=== PATIENT | female | born 1945 | race Caucasian/White ===

== ENCOUNTER 2017-07-18 12:23 | Inpatient (IN) | payer OTHER ==
[~2017-07-18] VITALS: Ht 165.1 cm; Wt 91.2 kg
--- NOTE | ~2017-07-18 | CO ---
Unit #: [id number] #: [id number] Patient: RIOS AGUIRRE [id number] [address] [address] [id number] I MR#: [id number] NAME: RIOS AGUIRRE. ROOM: 308 Age: 72 Sex: F Admission Date: 07/18/2017 : 1945 Attending Physician: Hansel Ardon Primary Care Physician: Travon Yepez M.D. Consultation Date: 07/19/2017 CONSULTATION REPORT REASON FOR CONSULTATION Acidosis and renal insufficiency. Thank you very much for asking me to see this patient in consultation. HISTORY OF PRESENT ILLNESS Ms. Pietro Aguirre is a 72-year-old female, who I have seen in the past secondary to some renal insufficiency, although I do not have the office records at this time and I cannot remember when the last date was, but I known in 2014 renal ultrasound was done, which showed some small kidneys bilaterally and her creatinine in 2013 ranged between 1.4 to 1.5, in 2015 it was actually improved down to 1.1. She presented here yesterday after having seizures at home. She has had 2 to 3 days prior to presentation of abdominal pain, nausea, vomiting, diarrhea, developed seizures, and presented here. She was noted to have a bicarb of 13 with a creatinine 1.3. Because of this, I was asked to see the patient. The patient currently is arousable, little confused, very slow to answer questions. No family is at bedside. She currently states her abdominal pain, nausea, vomiting, and diarrhea have improved. She is not having any chest pain or shortness of breath. MEDICATIONS At home includes zonisamide, citalopram, levothyroxine, oxybutynin, amlodipine, gabapentin, aspirin, Zantac. Here, she was started on Levaquin. ALLERGIES Include penicillin, codeine, and Demerol. SOCIAL HISTORY She lives with her daughter and granddaughter. No smoking. No alcohol. PAST MEDICAL HISTORY History of seizure disorder, history of hypertension, history of CVA, history of psychiatric disorder, history of chronic kidney disease stage 3, history of gastroesophageal reflux disease, status post bilateral hips, status post right knee, status post appendectomy, status post hysterectomy, status post cholecystectomy. REVIEW OF SYSTEMS As mentioned in the HPI, otherwise negative. PHYSICAL EXAMINATION GENERAL: Again, she is alert, little confused. Unit #: [id number] #: [id number] Patient: TALYA VITAL SIGNS: T-max 99.8, pulse 63 to 107, blood pressure 123 to 170 over 59 to 100. HEENT: She is normocephalic and atraumatic. Pupils are equal, round, and reactive to light. Extraocular muscles are intact. Hearing appears to be normal. Mouth is dry. No erythema. No exudate. NECK: Supple. No adenopathy. CARDIAC: She appears to have a regular rhythm without a rub. No S3 or S4. LUNGS: Appear to be clear bilaterally. No wheezes, rhonchi, or rales. ABDOMEN: Overweight, bowel sounds positive, nontender, soft. EXTREMITIES: She has no significant lower extremity swelling. Her pulses are intact in lower extremities. JOINTS: No joint pain or joint swelling. SKIN: No acute rashes. NEUROLOGIC: Again, some confusion and very slow to answer questions. : Serna catheter is currently in place. DIAGNOSTIC STUDIES LABORATORY RESULTS: Upon admission showed again creatinine 1.3, bicarb is 13 with an anion gap of 15. Today, shows sodium is 142; potassium 3.8; chloride is 113; bicarb is 20, she has been on a bicarb drip which has now been discontinued; BUN of 23; creatinine 1.3; glucose is 104 here, on admission it was 198; calcium is 8.9; albumin is 3.4. Lactic acid is 1.4. Previous creatinine is as mentioned above. Her urine showed a specific gravity of 1.02, 2+ protein, positive ketones, 100 to 200 wbc's, 2 to 5 rbc's, 4+ bacteria with gram negative rods. IMAGING STUDIES: Chest x-ray and CT of the head were both negative. ASSESSMENT/PLAN 1. Acidosis. Although, I do not have an ABG, assume it is a metabolic acidosis. No history of any type of ingestions, although disagree with check an aspirin on the tox screen. Certainly, her anion gap was 15, which is mildly elevated and certainly it could be multifactorial from diarrhea versus renal insufficiency questionable renal tubular acidosis. She also had urine ketones, although noticed she had some sort of starvation ketosis, although I do not have serum ketones at this point either versus other. Her bicarb has improved. I agree with stopping bicarb drip. We will put her on some oral bicarb. We will check some urine electrolytes to rule out renal tubular acidosis, but hopefully will continue to improve. Lactic acid was again 1.4, so I do not think that is contributing to her bicarb being low. 2. Renal insufficiency. Appears to have chronic kidney disease. Again, I do not have my office records of workup, but I am going to go ahead and do an SPEP. No reason to do an imaging studies at this time. We will follow. 3. Gram-negative urinary tract infection, on Levaquin. Await sensitivities. 4. Seizure disorder. 5. Psychiatric disorder. 6. Hypertension. Certainly, we will follow her blood pressure trends and treat whatever agents as clinically indicated. Certainly, she continues to have proteinuria even mildly KENYETTA inhibitor and angiotensin receptor nikki would be probably the drug of choice. Dictated by.Nishant Pizarro M.D. Unit #: [id number] #: [id number] Patient: RIOS AGUIRRE BRAULIO/modl TD: 07/19/2017 16:33 JOB #: [id number] CONSULTATION REPORT Page 1 of 1 X Ivania Pizarro MD X CONSULTATION REPORT
--- NOTE | ~2017-07-18 | CT71 ---
[facility] A Service of [facility] RADIOLOGY TEXT RESULTS PATIENT: TALYAApril LOCATION: [facility] 308-01 : 44 UNIT #: [id number] AGE: [address]: Soraida Diana MD SEX: F ORDER DR: [id number] [facility] [address] [facility]. [place], [place] [address] [id number] I MR#: [id number] Acc #: [id number] NAME: RIOS BABIN. : 1945 SEX: F STUDY DATE/TIME: 07/18/2017 14:19 UNIT: CEDOF ROOM: 79747 STUDY DESCRIPTION: CT Head Wo Contrast Attending Physician: Soraida Diana M.D. Ordering Physician: Tee Figueroa M.D. Primary Care Physician: Travon Yepez M.D. MEDICAL IMAGING REPORT This report is preliminary unless electronic signature is present EXAM Head CT without contrast, 07/18/2017. HISTORY Acute mental status change today, confusion status post seizure today with agitation. TECHNIQUE Multiple axial images were obtained from the skull base to vertex without intravenous contrast administration. This CT exam was performed with one or more of the following radiation dose reduction techniques: automatic exposure control, adjustment of mA and/or kV according to patient size, and iterative reconstruction. FINDINGS The exam is somewhat limited by patient motion with resulting artifact. The ventricles are normal in size, shape, and position. There is no midline shift. There is no mass or mass effect, hemorrhage or acute infarct. The visualized paranasal sinuses are clear. IMPRESSION Exam limited by patient motion with resulting artifact. No acute intracranial abnormality. Dictated by... Daniel Queen M.D. THIS IS AN ELECTRONICALLY VERIFIED REPORT Daniel Queen M.D. at 07/19/2017 6:39 AM ALLYSSA/tmw [facility] A Service of [facility] RADIOLOGY TEXT RESULTS PATIENT: TALYARIOS Cathryn LOCATION: [facility] 308-01 : 44 UNIT #: [id number] AGE: [address]: Soraida Diana MD SEX: F ORDER DR: TD: 07/18/2017 17:26 JOB #: [id number] MEDICAL IMAGING REPORT Page 1 of 1 COPY
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
--- NOTE | ~2017-07-18 | CO ---
Unit #: [id number] #: [id number] Patient: RIOS BABIN [id number] [facility] [address] [facility]. [place], [place] [address] [id number] MR#: [id number] NAME: RIOS BABIN. ROOM: 308 Age: 72 Sex: F Admission Date: 07/18/2017 : 1945 Attending Physician: Hansel Ardon M.D. Primary Care Physician: Travon Yepez M.D. Consultation Date: 07/19/2017 CONSULTATION REPORT REASON FOR CONSULTATION Seizures. PATIENT IDENTIFICATION This is a 72-year-old right-handed white female, who was evaluated in room 308 at [facility]. SOURCE OF INFORMATION The patient and evaluation done by admitting team and previous records. I have seen this patient in the past. PROBLEM LIST 1. 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 2. Chronic kidney disease stage III, followed by Dr. Pizarro. 3. GERD. 4. History of stroke. 5. History of hypothyroidism. 6. Bilateral hip surgery. 7. Right knee surgery. 8. Cholecystectomy. 9. Appendectomy. 10. Hysterectomy. 11. EGD. 12. Possible UTI, which could be secondary cause for increased seizure threshold. 13. Metabolic acidosis with anion gap of 15. 14. Nausea and vomiting. 15. Hypothyroidism. HISTORY OF PRESENT ILLNESS This is a very pleasant 72-year-old female, who is actually known to me and is being followed by Dr. Salguero. She was a patient of Dr. Sesar Valdez in the past. She was diagnosed with epilepsy since the s. She is to have a strange taste in the mouth and then sometimes staring episodes and other times the seizures. She has not had a generalized convulsive type episode for quite some time. She presented with multiple seizure and one prolonged generalized convulsive type event. She has failed monotherapy of Dilantin and phenobarbital and also tried combination of Keppra, Trileptal, and Tegretol and lately has been on zonisamide and also on Neurontin and they have been working on her because she continues to have staring episodes and strange taste in the mouth. She is doing much better, but still confabulating and perseverating, not Unit #: [id number] #: [id number] Patient: RIOS BABIN back to her normal self. Her daughter was worried about it, but she is much more awake and has not had a seizure in almost 24 hours now. She does have UTI probably that is causing the problem. She denies any noncompliance. PAST MEDICAL HISTORY As discussed above. PAST SURGICAL HISTORY As discussed above. ALLERGIES Penicillin, codeine, meperidine. HOME MEDICATIONS Zonisamide 100 mg one capsule in the morning and two at night, citalopram, levothyroxine 0.25 mg daily, oxybutynin 15 mg b.i.d., gabapentin 800 mg t.i.d., amlodipine 10 mg daily, aspirin 81 mg daily, ranitidine 150 mg daily. FAMILY HISTORY No seizures known to me. Dad had COPD. SOCIAL HISTORY The patient is living with her daughter and granddaughter. She is . She has no tobacco, alcohol, or drug use. REVIEW OF SYSTEMS Difficult to obtain because of her confusional state. HEENT: She denies any headaches, double vision, earache, runny nose, or sore throat. CHEST: She denies any chest pain. She denies any shortness of air. GASTROINTESTINAL: She denies any nausea, vomiting, diarrhea, or constipation. GENITOURINARY: No genitourinary symptoms. EXTREMITIES: No extremity problems. BACK: No back problem. PSYCHIATRIC: She denies. NEUROLOGIC: Seizures. No other hematologic, dermatologic, or endocrine problem. PHYSICAL EXAMINATION VITAL SIGNS: Temperature 99.6, pulse 68, respirations 18, blood pressure 133/90, O2 saturations were 95% to 100%. Weight 187 pounds. NEUROLOGIC: The patient is awake. She is alert. She is oriented to herself. She is struggling with place and time. She is even struggling with telling me her daughter's name. She can name. She can follow commands. No real right/left confusion. Cranial nerve examination demonstrate respond to threats in all sidhu. Eye movements are conjugate. I did not see any ptosis. I did not see any nystagmus. Extraocular movements are intact. Sensation on the face and scalp are normal. Strength of muscles of facial expression seemed to be normal. Hearing seemed to be intact. Tongue was midline. I could not visualize oropharynx or uvula. Head turning was spontaneous. Motor examination; she has normal bulk and tone. Strength was 5-/5. Unit #: [id number] #: [id number] Patient: RIOS BABIN Sensory examination intact for soft touch and pain sensation. No extinction was seen. Romberg was not evaluated. Gait examination was deferred. Reflexes 1/4. Toes are equivocal. Coordination was normal. DIAGNOSTIC STUDIES LABORATORY RESULTS: The biggest concern on lab are H and H of 10.8 and 32.1, white count was 9.8, platelet count was 228. Urinalysis showed benzodiazepines positive and opiates positive. She got some medication. Leukocyte esterase 1+, 100 to 200 wbc's, 4+ bacteria. IMAGING STUDIES: She got head CT which was reported as exam limited by the patient's motion artifact, otherwise unremarkable. IMPRESSION This is a very interesting 72-year-old female with likely breakthrough seizure. She is taking several medication. She has urinary tract infection and probably that was one of the causes. I agree with the team. We need to change our treatment plan. I talked to her daughter and she does not recognize or remember that she uses Vimpat, so I will go with Keppra and Vimpat. I am going to decrease the Neurontin to 400 mg t.i.d. because she has renal patient, also she has problems with metabolic acidosis, so I will start tapering zonisamide. She did not get yesterday's dose I believe, so I am going to give her 100 mg for 3 days nightly and see how things go. She should follow up with Dr. Salguero. Call me for any other questions, issues, or concerns. Seizure precautions, state laws start all over again. Call me for any other issues. Dictated by... Barbara Tyson/anastasia TD: 07/19/2017 17:31 JOB #: [id number] CONSULTATION REPORT Page 1 of 1 X Viviane Madden MD CONSULTATION REPORT
--- NOTE | ~2017-07-18 | CR229 ---
[facility] A Service of [facility] RADIOLOGY TEXT RESULTS PATIENT: RIOS BABIN LOCATION: [facility] : 44 UNIT #: [id number] AGE: [address]: Soraida Diana MD SEX: F ORDER DR: [id number] [facility]. [place], [place] [address] [id number] MR#: [id number] Acc #: [id number] NAME: RIOS BABIN. : 1945 SEX: F STUDY DATE/TIME: 07/18/2017 15:24 UNIT: [address] ROOM: [facility] STUDY DESCRIPTION: CR Shoulder Min 2 View Lt Attending Physician: Soraida Diana M.D. Ordering Physician: Uzair Estrada M.D. Primary Care Physician: Travon Yepez M.D. MEDICAL IMAGING REPORT This report is preliminary unless electronic signature is present EXAM Left shoulder 3 views 07/18/2017 INDICATIONS Altered mental status, seizure, clinical concern for dislocation. The patient is incoherent. Altered mental status. TECHNIQUE 3 views COMPARISON 05/01/2014 FINDINGS No acute fracture, shoulder separation or dislocation. There is degenerative change of the glenohumeral joint, humeral head and AC joint. Marked spurring of the humeral head. There is a high riding humeral head suggestive of chronic rotator cuff tear. IMPRESSION Osteoporosis with findings suggestive of a chronic rotator cuff tear and associated degenerative change but no acute fracture or dislocation. Dictated by... Sesar Garcia M.D. THIS IS AN ELECTRONICALLY VERIFIED REPORT Sesar Garcia M.D. at 07/18/2017 11:18 PM JOYCEY/priscilla TD: 07/18/2017 18:35 JOB #: [id number] [facility] A Service of [facility] RADIOLOGY TEXT RESULTS PATIENT: RIOS BABIN LOCATION: [facility] : 44 UNIT #: [id number] AGE: [address]: Soraida Diana MD SEX: F ORDER DR: MEDICAL IMAGING REPORT Page 1 of 1 COPY
--- NOTE | ~2017-07-18 | DS ---
Unit #: [id number] #: [id number] Patient: RIOS BABIN [id number] [address] [address] [id number] MR#: [id number] NAME: RIOS BABIN. ROOM: 308 Age: 72 Sex: F Admission Date: 07/18/2017 : 1945 Discharge Date: 07/22/2017 Attending Physician: Hansel Ardon M.D. Primary Care Physician: Travon Yepez M.D. DISCHARGE SUMMARY DISCHARGE DIAGNOSES Intractable seizure, pyelocystitis, metabolic acidosis, chronic kidney disease, hypertension, hypothyroidism, acute delirium, gastroenteritis, ketosis from nausea and vomiting. HOSPITAL COURSE The patient is a 72-year-old woman with a history significant for recurrent seizures, hypertension, chronic kidney disease, hypothyroidism, depression and anxiety, urinary incontinence, who presented with symptoms of abdominal pain, nausea, vomiting, and diarrhea. The patient's seizure medications were zonisamide and gabapentin. She was found to be having altered mental level of consciousness, unable to communicate, clinching mouth, who is acutely treated for the intractable seizure with IV Keppra and Vimpat. CAT scan of the head showed no acute findings. During her admission, her urine culture came back positive for Escherichia coli. The patient was treated with valsartan. She will be continued on p.o. Keflex as an outpatient. The patient has not had recurrent seizure during her admission on the new antiseizure medications. Her altered level of consciousness and acute delirium had resolved. On labs, the patient was noted to have metabolic acidosis which can be an adverse effect of her medication zonisamide. Therefore, this medication is discontinued. Her Neurontin dose is reduced from 800 mg to 400 mg. She had no further nausea and vomiting. The patient also had ketosis likely secondary to her nausea and vomiting, which the ketosis also resolved with IV fluids. The patient is awake, alert, and oriented, not having any further seizures. The patient will be discharged home today with home health services. DISCHARGE MEDICATIONS Amlodipine 10 mg p.o. at bedtime, oxybutynin 15 mg p.o. once daily, ranitidine 150 mg p.o. once daily, aspirin 81 mg p.o. once daily, Naprosyn 550 mg p.o. once daily as needed for headache, calcium carbonate with vitamin D tablet one p.o. once daily, sodium carbonate 1300 mg p.o. twice daily, acetaminophen 650 mg p.o. q.4 p.r.n., gabapentin 400 mg p.o. t.i.d., Vimpat 100 mg p.o. twice daily, Keppra 500 mg p.o. three times a day, Celexa 20 mg p.o. once daily, vitamin D 1000 units p.o. once daily, vitamin B12 1000 mcg p.o. once daily, Keflex 500 mg p.o. q.12 hours for 5 days. 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 The patient is to follow up with primary care physician. The patient will receive home health services with Physical Therapy. Unit #: [id number] #: [id number] Patient: RIOS BABIN Dictated by... Barbara Masterson TD: 07/26/2017 11:24 JOB #: [id number] DISCHARGE SUMMARY Page 1 of 1 X X DISCHARGE SUMMARY
--- NOTE | ~2017-07-18 | CR72 ---
[facility] A Service of [facility] & [facility] RADIOLOGY TEXT RESULTS PATIENT: RIOS BABIN LOCATION: [facility] 308-01 : 44 UNIT #: [id number] AGE: [address]: Soraida Diana MD SEX: F ORDER DR: [id number] [facility] [address]. [place], [place] [address] [id number] MR#: [id number] Acc #: [id number] NAME: RIOS BABIN. : 1945 SEX: F STUDY DATE/TIME: 07/18/2017 13:49 UNIT: CEDOF ROOM: 75943 STUDY DESCRIPTION: CR Chest Single View Portable Attending Physician: Soraida Diana M.D. Ordering Physician: Tee Figueroa M.D. Primary Care Physician: Travon Yepez M.D. MEDICAL IMAGING REPORT This report is preliminary unless electronic signature is present EXAM Portable chest, 07/18/2017. HISTORY Shortness of breath, status post seizure today. Benign essential hypertension. FINDINGS A single AP portable view of the chest shows both lungs to be clear. The heart is normal in size. The mediastinal contour is normal. No significant bone abnormalities are seen. IMPRESSION Normal portable chest. Dictated by... Daniel Queen M.D. THIS IS AN ELECTRONICALLY VERIFIED REPORT Daniel Queen M.D. at 07/19/2017 6:38 AM ALLYSSA/aldair TD: 07/18/2017 17:09 JOB #: [id number] MEDICAL IMAGING REPORT Page 1 of 1 COPY
[~2017-07-18 12:23] MED LIST: ?ANTIBIOTIC; ACETAMINOPHEN PO; ASPIRIN EC81 M1 PO; ASPIRIN PO; ATIVAN PO; CELEXA10 MG PO; CELEXA20 MG PO; CITALOPRAM HBR10 MG PO; CRESTOR PO; CRESTOR10 MG PO; DARVOCET-N 1001 TAB PO; DITROPAN PO; DITROPAN XL PO; ECOTRIN81 M1 PO; HYDROCODON-ACE1 EAC3; HYDROCODON-ACE1 EAC7 PO; KEPPRA750 MG PO; LAMICTAL5 MG PO; LAMOTRIGINE200 MG PO; LAMOTRIGINE5 MG PO; LISINOPRIL PO; LOPID600 MG PO; MULTIVITAMIN W-1 TAB PO; NEPHROCAPS CAPSU1 MG PO; NEURONTIN PO; NEURONTIN800 MG PO; NORVASC PO; NORVASC10 MG PO; OMEPRAZOLE20 M2; OXYBUTYNIN CHLO15 MG PO; PHENERGAN25 MG PO; PRILOSEC20 M1 PO; PRINIVIL10 MG PO; SODIUM BICARBO650 MG PO; VIT B-12 PO; ZANTAC PO; ZANTAC150 MG PO; ZOCOR PO; ZONEGRAN100 M1 PO
[2017-07-18 13:37] LABS: BASOPHIL% 0.3 % (0-2.5); HEMATOCRIT 40.8 % (35.0-45.0); HEMOGLOBIN 13.3 gm/dL (12.0-16.0); LYMPHOCYTE# 0.7 X10e3 (1.0-3.5); LYMPHOCYTE% 5.8 % (17.0-45.0); MEAN CELL VOLUME 92.7 FL (83-96); MEAN CORPUSCULAR HEMOGLOBIN 30.3 PG (28-34); MEAN CORPUSCULAR HGB CONC 32.7 g/dL (30-36); MEAN PLATELET VOLUME 8.8 FL (6.5-11.5); MONOCYTE# 0.4 X10e3 (0-1.0); NEUTROPHIL# 10.9 X10e3 (1.5-7.1); NEUTROPHIL% 90.9 % (40-75); PLATELET COUNT 279 X10e3 (140-420); RED CELL DISTRIBUTION WIDTH 14.1 % (11.0-15.5)
[2017-07-18 13:46] LABS: DIFF IND NO
[2017-07-18 14:03] LABS: ALBUMIN SERUM 4.1 g/dL (3.5-5.0); BILIRUBIN, DIRECT 0.2 mg/dL (0.0-0.2); BILIRUBIN,INDIRECT 0.5 mg/dL (0.0-0.9); BILIRUBIN,TOTAL 0.7 mg/dL (0.2-2.0); BUN/CREATININE RATIO 17.69; CREATININE SERUM 1.3 mg/dL (0.6-1.4); GLOM FILT RATE Estimated 40.7 mL/min (>60); POTASSIUM 3.9 mmol/L (3.5-5.1); PROTEIN TOTAL SERUM 7.2 g/dL (6.0-8.3)
[2017-07-18] MEDS ORDERED: NAPROXEN SODIU550 MG PO (16:21)
[2017-07-18] MEDS ORDERED: RANITIDINE HCL150 M1 PO (16:21)
[2017-07-18] MEDS ORDERED: VITAMIN D31000 UNIT PO (16:23)
[2017-07-18] MEDS ORDERED: CALCIUM 600 +1 EAC1 PO (16:23)
[2017-07-18 16:33] LABS: URINE APPEARANCE CLOUDY; URINE BILIRUBIN NEG (NEG); URINE BLOOD NEG (NEG); URINE COLOR YELLOW; URINE GLUCOSE NEG (NEG); URINE KETONE 1+ (NEG); URINE LEUKOCYTE ESTERASE 1+ (NEG); URINE NITRATE NEG (NEG); URINE PH 5.5 (5-8); URINE PROTEIN 2+ (NEG)
[2017-07-18 16:36] LABS: URINE BACTERIA AUWI 4+ (NEGATIVE); URINE SQUAMOUS EPITHELIAL CELL NONE SEEN /[HPF]; UWBCS1 AUWI 100-200 (0-5)
[2017-07-18 21:42] LABS: BUN/CREATININE RATIO 20.83; CALCIUM SERUM 9.2 mg/dL (8.4-10.2); CREATININE SERUM 1.2 mg/dL (0.6-1.4); GLOM FILT RATE Estimated 44.8 mL/min (>60); POTASSIUM 3.8 mmol/L (3.5-5.1)
[2017-07-19 05:13] LABS: HEMATOCRIT 32.1 % (35.0-45.0); MEAN CELL VOLUME 92.9 FL (83-96); MEAN CORPUSCULAR HEMOGLOBIN 31.1 PG (28-34); MEAN CORPUSCULAR HGB CONC 33.5 g/dL (30-36); MEAN PLATELET VOLUME 7.9 FL (6.5-11.5); RED BLOOD COUNT 3.46 X10e (3.90-5.30); RED CELL DISTRIBUTION WIDTH 14.1 % (11.0-15.5); WHITE BLOOD COUNT 9.8 X10e3 (4.0-10.5)
[2017-07-19 05:29] LABS: HEMOGLOBIN 10.8 gm/dL (12.0-16.0)
[2017-07-19 06:41] LABS: ALBUMIN SERUM 3.4 g/dL (3.5-5.0); BILIRUBIN,TOTAL 0.2 mg/dL (0.2-2.0); BUN/CREATININE RATIO 19.23; CALCIUM SERUM 8.9 mg/dL (8.4-10.2); CREATININE SERUM 1.3 mg/dL (0.6-1.4); GLOM FILT RATE Estimated 40.7 mL/min (>60); MAGNESIUM 1.8 mg/dL (1.6-3.0); POTASSIUM 3.8 mmol/L (3.5-5.1); PROTEIN TOTAL SERUM 5.9 g/dL (6.0-8.3)
[2017-07-19 14:30] LABS: THYROID STIMULATING HORMONE 1.87 uIU/ml (0.34-5.60)
[2017-07-19 14:34] LABS: AMPHETAMINE NEG (NEG); BARBITURATES NEG (NEG); BENZODIAZEPINES POS (NEG); COCAINE NEG (NEG); MARIJUANA NEG (NEG); OPIATES POS (NEG); TRICYCLIC ANTIDEPRESSANTS NEG (NEG); U METHADONE NEG (NEG)
[2017-07-19 14:36] LABS: FREE THYROXIN (T4) 1.19 ng/dL (0.58-1.64)
[2017-07-19 15:47] LABS: POTASSIUM,URINE RANDOM 30 mmol/L; SODIUM URINE RANDOM 159 mmol/L
[2017-07-20 06:29] LABS: HEMATOCRIT 33.4 % (35.0-45.0); HEMOGLOBIN 11.1 gm/dL (12.0-16.0); MEAN CELL VOLUME 94.7 FL (83-96); MEAN CORPUSCULAR HEMOGLOBIN 31.4 PG (28-34); MEAN CORPUSCULAR HGB CONC 33.1 g/dL (30-36); MEAN PLATELET VOLUME 8.2 FL (6.5-11.5); RED BLOOD COUNT 3.52 X10e (3.90-5.30)
[2017-07-20 07:12] LABS: ALBUMIN SERUM 3.4 g/dL (3.5-5.0); BILIRUBIN,TOTAL 0.6 mg/dL (0.2-2.0); BUN/CREATININE RATIO 21.81; CALCIUM SERUM 8.8 mg/dL (8.4-10.2); CREATININE SERUM 1.1 mg/dL (0.6-1.4); GLOM FILT RATE Estimated 49.8 mL/min (>60); MAGNESIUM 1.8 mg/dL (1.6-3.0); PHOSPHOROUS 2.9 mg/dL (2.5-4.6); POTASSIUM 3.9 mmol/L (3.5-5.1); PROTEIN TOTAL SERUM 5.7 g/dL (6.0-8.3)
[2017-07-21 05:55] LABS: CALCIUM SERUM 8.4 mg/dL (8.4-10.2); CREATININE SERUM 1.4 mg/dL (0.6-1.4); GLOM FILT RATE Estimated 37.2 mL/min (>60); POTASSIUM 3.4 mmol/L (3.5-5.1)
[2017-07-21 22:13] LABS: SPE A1GLOB (PNL) 0.3 g/dL (0.2-0.3); SPE A2GLOB (PNL) 0.6 g/dL (0.5-0.9); SPE ALB (PNL) 3.7 g/dL (3.8-4.8); SPE BETA 1 GLOBULIN 0.4 g/dL (0.4-0.6); SPE BETA 2 GLOBULIN 0.2 g/dL (0.2-0.5); SPE GAMMA (PNL) 0.6 g/dL (0.8-1.7); SPETP (PNL) 5.9 g/dL (6.1-8.1)
[2017-07-22 06:04] LABS: BUN/CREATININE RATIO 22.5; CALCIUM SERUM 9.2 mg/dL (8.4-10.2); CREATININE SERUM 0.8 mg/dL (0.6-1.4); GLOM FILT RATE Estimated 73.2 mL/min (>60); POTASSIUM 3.9 mmol/L (3.5-5.1)
[2017-07-22] MEDS ORDERED: ANTACID650 MG PO (14:15)
[2017-07-22] MEDS ORDERED: FEVERALL650 MG PR (14:16)
[2017-07-22] MEDS ORDERED: GABAPENTIN400 M2 PO (14:17)
[2017-07-22] MEDS ORDERED: VIMPAT100 MG PO (14:18)
[2017-07-22] MEDS ORDERED: KEPPRA500 M1 PO (14:19)
[2017-07-22] MEDS ORDERED: VITAMIN D1000 UNI1 PO (14:26)
[2017-07-22] MEDS ORDERED: KEFLEX500 MG PO (14:53)
== END 2017-07-22 16:40 | disposition home health service (06) | DRG 101 ==
LOC: CED 12:23 → C3A PCU 15:25 → CEDOF 15:25 → CED 15:52 → CEDOF 18:20 → C3A PCU 18:20
PROVIDERS: Emergency Medicine; Family Medicine; Internal Medicine; Internal Medicine Nephrology
PROC: 02HV33Z Insertion of Infusion Device into Superior Vena Cava, Percutaneous Approach (ICD-10-PCS; principal; 2017-07-18)
PROC: 4A02X4A Measurement of Cardiac Electrical Activity, Guidance, External Approach (ICD-10-PCS; 2017-07-18)
DX: G40.919 Epilepsy, unspecified, intractable, without status epilepticus (principal); E87.2 Acidosis; F05 Delirium due to known physiological condition; N12 Tubulo-interstitial nephritis, not specified as acute or chronic; N39.0 Urinary tract infection, site not specified; E66.01 Morbid (severe) obesity due to excess calories; N18.3 Chronic kidney disease, stage 3 (moderate); B96.20 Unspecified Escherichia coli [E. coli] as the cause of diseases classified elsewhere; I12.9 Hypertensive chronic kidney disease with stage 1 through stage 4 chronic kidney disease, or unspecified chronic kidney disease; E03.9 Hypothyroidism, unspecified; K52.9 Noninfective gastroenteritis and colitis, unspecified; F41.9 Anxiety disorder, unspecified; F32.9 Major depressive disorder, single episode, unspecified; K21.9 Gastro-esophageal reflux disease without esophagitis; Z86.73 Personal history of transient ischemic attack (TIA), and cerebral infarction without residual deficits; Z90.49 Acquired absence of other specified parts of digestive tract; Z90.710 Acquired absence of both cervix and uterus; Z83.6 Family history of other diseases of the respiratory system; Z88.0 Allergy status to penicillin; Z88.5 Allergy status to narcotic agent; Z79.82 Long term (current) use of aspirin; N28.9 Disorder of kidney and ureter, unspecified; Z68.31 Body mass index [BMI] 31.0-31.9, adult; R33.9 Retention of urine, unspecified; E87.6 Hypokalemia; R26.89 Other abnormalities of gait and mobility
CPT/HCPCS: 36415; 70450; 71010; 73030; 80048; 80053; 80076; 80307; 81003; 82010; 82436; 82607; 82947; 83605; 83735; 84100; 84133; 84165; 84300; 84439; 84443; 85025; 85027; 87040; 87086; 87088; 87186; 96361; 96374; 96375; 99285; C9254; G0480; J0696; J1953; J1956; J2060; J2250; J2270; J2405; J2550; J3475